=== PATIENT | male | born 1980 | race Caucasian/White ===

== ENCOUNTER 2020-01-10 01:33 | Inpatient (IN) | payer OTHER ==
[~2020-01-10] VITALS: Ht 170.2 cm; Wt 112.0 kg
[2020-01-10 02:55] LABS: BASOPHILS % 0.3 % (0.0-2.0); EOSINOPHILS % 0.8 % (0.0-5.0); HEMATOCRIT. 36.1 % (42.0-52.0); HEMOGLOBIN. 12.2 g/dL (14.0-18.0); MEAN CORPUSCULAR HEMOGLOBIN 27.7 pg (28.0-32.0); MEAN CORPUSCULAR VOLUME 81.8 fL (80.0-94.0); MEAN PLATELET VOLUME 8.1 fl (7.4-10.4); MONOCYTES % 12.9 % (2.0-8.0); PLATELET 375 x1000/uL (130-400); RED BLOOD CELL COUNT 4.42 mill/uL (4.7-6.1); RED CELL DISTRIBUTION WIDTH 13.5 % (11.6-14.6)
[2020-01-10 03:02] LABS: CHLORIDE 101 mEq/L (98-107)
[2020-01-10 03:06] LABS: CLARITY URINE CLEAR (CLEAR); COLOR URINE YELLOW (YELLOW); KETONES URINE NEGATIVE (NEGATIVE); LEUKOCYTE ESTERASE URINE NEGATIVE (NEGATIVE); NITRITE URINE NEGATIVE (NEGATIVE); OCCULT BLOOD URINE 1+ (NEGATIVE); PH URINE 5.5 (4.5-8.0); PROTEIN URINE 1+ (NEGATIVE); SPECIFIC GRAVITY URINE 1.024 (1.005-1.030); UROBILINOGEN URINE 0.2 E.U./dL (0.2-1.0)
[2020-01-10] MEDS ORDERED: SODIUM CHLORIDE 0.9% 1000ML BAG (SEPSIS BOLUS) IV ONE (03:15)
[2020-01-10] MEDS ORDERED: KETOROLAC 15MG/ML VIAL IV ONE (03:15)
[2020-01-10] MEDS ORDERED: MORPHINE SULFATE 4 MG/ML CPJ (NOT FOR IM USE) IV ONE (03:15)
[2020-01-10] MEDS ORDERED: PIPERACILLIN/TAZ 3.375G PREMIX 50 ML IV ONE (03:15)
[2020-01-10] MEDS ORDERED: VANCOMYCIN 1 G PREMIX 200 ML IV ONE (03:15)
[2020-01-10] MEDS ORDERED: PIPERACILLIN/TAZ 3.375G PREMIX 50 ML IV SCH ×2 (05:00→07:00)
[2020-01-10] MEDS ORDERED: GUAIFENESIN 200MG/10ML SUGAR FREE UDC PO PRN (07:00)
[2020-01-10] MEDS ORDERED: ONDANSETRON HCL 4MG/2ML INJ IV PRN (07:00)
[2020-01-10] MEDS ORDERED: MAGNESIUM/ALUMINUM HYDROXIDE/SIMETHICONE 30ML UDC PO PRN (07:00)
[2020-01-10] MEDS ORDERED: ENOXAPARIN 40MG/0.4ML SYR SUBCUT SCH (07:00)
[2020-01-10] MEDS ORDERED: IPRATROPIUM/ALBUTEROL 0.5-3(2.5)MG/3ML NEB NEB PRN (07:00)
[2020-01-10] MEDS ORDERED: NITROGLYCERIN 0.4MG TABLET SL SL PRN (07:00)
[2020-01-10] MEDS ORDERED: DOCUSATE SODIUM 100MG CAPSULE PO PRN (07:00)
[2020-01-10] MEDS ORDERED: TRAMADOL 50MG TABLET PO PRN (07:00)
[2020-01-10] MEDS ORDERED: DEXTROSE 50% WATER 50ML SYRINGE IV PRN (07:00)
[2020-01-10 09:00] VITALS: BP 127/83
[2020-01-10 09:30] VITALS: BP 127/83
[2020-01-10] MEDS: INSULIN LISPRO 100 UNITS/ML SUBCUT SCH ×4 (09:30→21:00)
[2020-01-10] MEDS: BLOOD SUGAR DIAGNOSTIC STRIP TEST SCH ×4 (09:30→21:00)
[2020-01-10] MEDS: GUAIFENESIN/DM 600MG/30MG ER TAB 12HR PO SCH ×2 (10:10→23:29)
[2020-01-10] MEDS: FAMOTIDINE 20MG TABLET PO SCH ×2 (10:10→23:29)
[2020-01-10] MEDS: ZINC SULFATE 220 MG ( 50 ) CAPSULE PO SCH (10:10)
[2020-01-10] MEDS: ASCORBIC ACID 500 MG TABLET PO SCH ×2 (10:10→23:29)
[2020-01-10] MEDS: ENOXAPARIN 30MG/0.3ML SYR SUBCUT SCH ×2 (10:11→21:00)
[2020-01-10] MEDS: SODIUM CHLORIDE 0.9% 1,000 ML IV SCH (10:11)
[2020-01-10 12:00] VITALS: BP 145/97
[2020-01-10] MEDS ORDERED: VANCOMYCIN 2,000 MG in DEXT 5% WATER 500 ML IV SCH (12:00)
[2020-01-10] MEDS: PIPERACILLIN/TAZOBACTAM 3.375 G in DEXT 5% WATER 100 ML IV SCH ×2 (12:06→17:18)
[2020-01-10] MEDS ORDERED: BENA40TA9 PO (12:34)
[2020-01-10] MEDS ORDERED: ASPI-1497 PO (12:34)
[2020-01-10] MEDS ORDERED: METF-415 PO (12:34)
[2020-01-10] MEDS: ACETAMINOPHEN 325MG TABLET PO PRN (12:49)
[2020-01-10 13:24] LABS: INR 1.2; PARTIAL THROMBOPLASTIN TIME 35.2 sec (23.4-31.0); PROTHROMBIN TIME 12.7 sec (9.6-11.0)
[2020-01-10 13:29] LABS: *BARBITURATES SCREEN URINE NEGATIVE (NEGATIVE)
[2020-01-10 13:30] LABS: *AMPHETAMINES SCREEN URINE NEGATIVE (NEGATIVE); *BENZODIAZEPINES SCREEN URINE NEGATIVE (NEGATIVE); *COCAINE SCREEN URINE NEGATIVE (NEGATIVE); CANNABINOID URINE SCREEN NEGATIVE (NEGATIVE); METHADONE URINE SCREEN NEGATIVE (NEGATIVE); OPIATES URINE SCREEN PRESUMTIVE POSITIVE (NEGATIVE); PHENCYCLIDINE URINE SCREEN NEGATIVE (NEGATIVE)
[2020-01-10 15:49] LABS: CREATINE KINASE 42 IU/L (39-308)
[2020-01-10 15:50] LABS: CREATINE KINASE MB FRACTION < 1.0 ng/mL (0.5-3.6)
[2020-01-10 16:00] VITALS: BP 129/82
[2020-01-10] MEDS: KETOROLAC 15MG/ML VIAL IV PRN (18:35)
[2020-01-10 20:00] VITALS: BP 139/97
[2020-01-10] MEDS ORDERED: ZOLPIDEM TARTRATE 5MG TABLET PO PRN (21:00)
[2020-01-10] MEDS: VANCOMYCIN 1250MG in DEXTROSE 5% WATER 250ML IV SCH (23:29)
[2020-01-11] VITALS (7 sets, daily range): BP systolic 136–156; BP diastolic 85–97
[2020-01-11] MEDS: PIPERACILLIN/TAZOBACTAM 3.375 G in DEXT 5% WATER 100 ML IV SCH ×4 (00:35→17:24)
[2020-01-11] MEDS: ACETAMINOPHEN 325MG TABLET PO PRN ×3 (00:35→20:25)
[2020-01-11 00:52] LABS: CREATINE KINASE 39 IU/L (39-308)
[2020-01-11 00:53] LABS: CREATINE KINASE MB FRACTION < 1.0 ng/mL (0.5-3.6)
[2020-01-11] MEDS: CLONIDINE 0.1MG TABLET PO PRN ×2 (05:00→12:02)
[2020-01-11] MEDS: BLOOD SUGAR DIAGNOSTIC STRIP TEST SCH ×4 (06:09→20:36)
[2020-01-11] MEDS: KETOROLAC 15MG/ML VIAL IV PRN (06:39)
[2020-01-11] MEDS: VANCOMYCIN 1250MG in DEXTROSE 5% WATER 250ML IV SCH ×3 (06:39→22:33)
[2020-01-11] MEDS: SODIUM CHLORIDE 0.9% 1,000 ML IV SCH (06:40)
[2020-01-11] MEDS: INSULIN LISPRO 100 UNITS/ML SUBCUT SCH ×4 (06:43→20:45)
[2020-01-11 07:42] LABS: INR 1.2; PARTIAL THROMBOPLASTIN TIME 33.9 sec (23.4-31.0)
[2020-01-11] MEDS ORDERED: SODIUM BICARBONATE 4% (2.4MEQ) 5ML VIAL IV ONE (08:42)
[2020-01-11] MEDS: ENOXAPARIN 30MG/0.3ML SYR SUBCUT SCH ×2 (09:00→20:45)
[2020-01-11] MEDS: ZINC SULFATE 220 MG ( 50 ) CAPSULE PO SCH (09:54)
[2020-01-11] MEDS: FAMOTIDINE 20MG TABLET PO SCH ×2 (09:54→20:27)
[2020-01-11] MEDS: GUAIFENESIN/DM 600MG/30MG ER TAB 12HR PO SCH ×2 (09:54→20:25)
[2020-01-11] MEDS: ASCORBIC ACID 500 MG TABLET PO SCH ×2 (09:54→20:25)
[2020-01-12] VITALS (52 sets, daily range): BP systolic 128–165; BP diastolic 59–103
[2020-01-12] MEDS: PIPERACILLIN/TAZOBACTAM 3.375 G in DEXT 5% WATER 100 ML IV SCH ×5 (00:13→23:06)
[2020-01-12] MEDS: INSULIN LISPRO 100 UNITS/ML SUBCUT SCH ×3 (06:30→21:01)
[2020-01-12] MEDS: BLOOD SUGAR DIAGNOSTIC STRIP TEST SCH ×3 (06:30→21:02)
[2020-01-12] MEDS: VANCOMYCIN 1250MG in DEXTROSE 5% WATER 250ML IV SCH ×3 (07:19→21:11)
[2020-01-12] MEDS: ZINC SULFATE 220 MG ( 50 ) CAPSULE PO SCH (08:03)
[2020-01-12] MEDS: FAMOTIDINE 20MG TABLET PO SCH ×2 (08:03→20:47)
[2020-01-12] MEDS: GUAIFENESIN/DM 600MG/30MG ER TAB 12HR PO SCH ×2 (08:03→20:47)
[2020-01-12] MEDS: ENOXAPARIN 30MG/0.3ML SYR SUBCUT SCH ×2 (08:04→20:48)
[2020-01-12] MEDS: ASCORBIC ACID 500 MG TABLET PO SCH ×2 (08:04→21:11)
[2020-01-12] MEDS ORDERED: BUPIVACAINE/EPINEPH/PF 0.25%/0.0005 10ML ONE (08:05)
[2020-01-12] MEDS ORDERED: TETRACAINE/BENZOCAINE/BUTAMBEN 20 GM SPRAY MM ONE (08:05)
[2020-01-12] MEDS ORDERED: BACITRACIN 50,000 UNITS/VIAL ONE (08:05)
[2020-01-12] MEDS ORDERED: BACITRACIN 15GM TUBE TOP ONE (08:06)
[2020-01-12] MEDS ORDERED: SKIN ADHESIVE 0.7 GM EA TOP ONE (08:06)
[2020-01-12] MEDS ORDERED: MIDAZOLAM HCL 2 MG/2 ML VIAL ONE (09:12)
[2020-01-12] MEDS ORDERED: PROPOFOL 200MG/20ML VIAL IV ONE (09:12)
[2020-01-12] MEDS ORDERED: ROCURONIUM BROMIDE 10MG/ML VIAL 5ML IV ONE (09:12)
[2020-01-12] MEDS ORDERED: NEOSTIGMINE METHYLSULFATE 1MG/ML 10 ML VIAL ONE (09:12)
[2020-01-12] MEDS ORDERED: FENTANYL CITRATE/PF 50MCG/ML 2ML VIAL ONE (09:12)
[2020-01-12] MEDS ORDERED: GLYCOPYRROLATE 0.2 MG/ML 2ML VIAL ONE ×2 (09:13→11:20)
[2020-01-12] MEDS ORDERED: DEXAMETHASONE 4MG/ML 1ML VIAL ONE (09:14)
[2020-01-12] MEDS ORDERED: ONDANSETRON HCL 4MG/2ML INJ ONE (09:14)
[2020-01-12] MEDS ORDERED: TALC 3 GM VIAL IX SCH (10:00)
[2020-01-12] MEDS ORDERED: HYDROMORPHONE HCL/PF 2MG/ML (OR) ONE (11:17)
[2020-01-12] MEDS ORDERED: LABETALOL 5MG/ML SYR 20 MG/4 ML SYRINGE IV PRN (11:45)
[2020-01-12] MEDS ORDERED: HYDROMORPHONE HCL/PF 2MG/ML CPJ IV PRN (11:45)
[2020-01-12] MEDS ORDERED: MEPERIDINE HCL/PF 25MG/ML CPJ IV PRN (11:45)
[2020-01-12] MEDS ORDERED: ONDANSETRON HCL 4MG/2ML INJ IV PRN (11:45)
[2020-01-12 12:34] LABS: HEMATOCRIT. 35.3 % (42.0-52.0); HEMOGLOBIN. 11.9 g/dL (14.0-18.0); MEAN CORPUSCULAR VOLUME 83.2 fL (80.0-94.0); MEAN PLATELET VOLUME 7.6 fl (7.4-10.4); PLATELET 354 x1000/uL (130-400); RED BLOOD CELL COUNT 4.25 mill/uL (4.7-6.1); RED CELL DISTRIBUTION WIDTH 13.4 % (11.6-14.6)
[2020-01-12] MEDS: HYDROMORPHONE HCL/PF 2MG/ML CPJ IV PRN ×3 (14:11→19:59)
[2020-01-12 14:27] LABS: PLATELET ESTIMATE NORMAL
[2020-01-12] MEDS: LACTATED RINGERS 1,000 ML IV SCH (15:31)
[2020-01-12] MEDS: SODIUM CHLORIDE 0.9% 1,000 ML IV SCH (19:39)
[2020-01-13] VITALS (71 sets, daily range): BP systolic 125–158; BP diastolic 61–103
[2020-01-13] MEDS: PIPERACILLIN/TAZOBACTAM 3.375 G in DEXT 5% WATER 100 ML IV SCH ×4 (05:03→23:08)
[2020-01-13] MEDS: VANCOMYCIN 1250MG in DEXTROSE 5% WATER 250ML IV SCH (05:08)
[2020-01-13] MEDS: HYDROMORPHONE HCL/PF 2MG/ML CPJ IV PRN ×3 (06:16→23:23)
[2020-01-13 06:51] LABS: BASOPHILS % 0.3 % (0.0-2.0); EOSINOPHILS % 0.6 % (0.0-5.0); HEMATOCRIT. 35.1 % (42.0-52.0); HEMOGLOBIN. 11.7 g/dL (14.0-18.0); LYMPHOCYTES % 15.1 % (20.0-50.0); MEAN CORPUSCULAR HEMOGLOBIN 27.6 pg (28.0-32.0); MEAN CORPUSCULAR VOLUME 83.1 fL (80.0-94.0); MEAN PLATELET VOLUME 7.7 fl (7.4-10.4); PLATELET 348 x1000/uL (130-400); RED BLOOD CELL COUNT 4.22 mill/uL (4.7-6.1); RED CELL DISTRIBUTION WIDTH 13.6 % (11.6-14.6)
[2020-01-13 07:11] LABS: CHLORIDE 108 mEq/L (98-107)
[2020-01-13] MEDS: INSULIN LISPRO 100 UNITS/ML SUBCUT SCH ×4 (08:20→20:58)
[2020-01-13] MEDS: ZINC SULFATE 220 MG ( 50 ) CAPSULE PO SCH (08:41)
[2020-01-13] MEDS: FAMOTIDINE 20MG TABLET PO SCH ×2 (08:41→20:43)
[2020-01-13] MEDS: GUAIFENESIN/DM 600MG/30MG ER TAB 12HR PO SCH ×2 (08:41→20:43)
[2020-01-13] MEDS: ASCORBIC ACID 500 MG TABLET PO SCH ×2 (08:41→20:43)
[2020-01-13] MEDS: BLOOD SUGAR DIAGNOSTIC STRIP TEST SCH ×4 (08:42→20:58)
[2020-01-13] MEDS: SODIUM CHLORIDE 0.9% 1,000 ML IV SCH (08:42)
[2020-01-13] MEDS: ENOXAPARIN 30MG/0.3ML SYR SUBCUT SCH ×2 (09:00→20:43)
[2020-01-13] MEDS: LOSARTAN POTASSIUM 100 MG TABLET PO SCH (13:21)
[2020-01-13] MEDS: VANCOMYCIN 1500MG in DEXTROSE 5% WATER 250ML IV SCH (22:26)
[2020-01-14] VITALS (44 sets, daily range): BP systolic 120–164; BP diastolic 79–104
[2020-01-14] MEDS: SODIUM CHLORIDE 0.9% 1,000 ML IV SCH (02:23)
[2020-01-14] MEDS: PIPERACILLIN/TAZOBACTAM 3.375 G in DEXT 5% WATER 100 ML IV SCH ×3 (05:22→17:53)
[2020-01-14 05:54] LABS: BASOPHILS % 0.4 % (0.0-2.0); EOSINOPHILS % 2.9 % (0.0-5.0); HEMATOCRIT. 35.7 % (42.0-52.0); HEMOGLOBIN. 12.1 g/dL (14.0-18.0); LYMPHOCYTES % 15.5 % (20.0-50.0); MEAN CORPUSCULAR VOLUME 82.9 fL (80.0-94.0); MEAN PLATELET VOLUME 7.5 fl (7.4-10.4); MONOCYTES % 10.5 % (2.0-8.0); NEUTROPHILS % 70.7 % (40.0-76.0); PLATELET 352 x1000/uL (130-400); RED CELL DISTRIBUTION WIDTH 13.2 % (11.6-14.6)
[2020-01-14] MEDS: HYDROMORPHONE HCL/PF 2MG/ML CPJ IV PRN ×4 (06:57→23:16)
[2020-01-14] MEDS: BLOOD SUGAR DIAGNOSTIC STRIP TEST SCH ×4 (07:50→21:00)
[2020-01-14] MEDS: INSULIN LISPRO 100 UNITS/ML SUBCUT SCH ×4 (08:20→21:00)
[2020-01-14] MEDS: ASCORBIC ACID 500 MG TABLET PO SCH ×2 (08:21→21:20)
[2020-01-14] MEDS: GUAIFENESIN/DM 600MG/30MG ER TAB 12HR PO SCH ×2 (08:21→21:20)
[2020-01-14] MEDS: ZINC SULFATE 220 MG ( 50 ) CAPSULE PO SCH (08:21)
[2020-01-14] MEDS: LOSARTAN POTASSIUM 100 MG TABLET PO SCH (08:22)
[2020-01-14] MEDS: VANCOMYCIN 1500MG in DEXTROSE 5% WATER 250ML IV SCH ×2 (08:22→21:20)
[2020-01-14] MEDS: FAMOTIDINE 20MG TABLET PO SCH ×2 (08:22→23:15)
[2020-01-14] MEDS: ENOXAPARIN 30MG/0.3ML SYR SUBCUT SCH ×2 (08:22→23:15)
[2020-01-14] MEDS: LACTATED RINGERS 1,000 ML IV SCH (14:13)
[2020-01-15] VITALS (43 sets, daily range): BP systolic 127–172; BP diastolic 69–114
[2020-01-15] MEDS: PIPERACILLIN/TAZOBACTAM 3.375 G in DEXT 5% WATER 100 ML IV SCH ×4 (00:21→18:02)
[2020-01-15] MEDS: HYDROMORPHONE HCL/PF 2MG/ML CPJ IV PRN ×4 (04:45→22:11)
[2020-01-15 06:02] LABS: BASOPHILS % 0.5 % (0.0-2.0); EOSINOPHILS % 3.4 % (0.0-5.0); HEMATOCRIT. 36.1 % (42.0-52.0); HEMOGLOBIN. 11.9 g/dL (14.0-18.0); LYMPHOCYTES % 11.4 % (20.0-50.0); MEAN CORPUSCULAR HEMOGLOBIN 27.3 pg (28.0-32.0); MEAN CORPUSCULAR VOLUME 82.7 fL (80.0-94.0); MEAN PLATELET VOLUME 7.5 fl (7.4-10.4); NEUTROPHILS % 75.7 % (40.0-76.0); PLATELET 372 x1000/uL (130-400); RED BLOOD CELL COUNT 4.36 mill/uL (4.7-6.1); RED CELL DISTRIBUTION WIDTH 13.3 % (11.6-14.6)
[2020-01-15] MEDS: BLOOD SUGAR DIAGNOSTIC STRIP TEST SCH ×4 (08:16→22:09)
[2020-01-15] MEDS: VANCOMYCIN 1500MG in DEXTROSE 5% WATER 250ML IV SCH (09:16)
[2020-01-15] MEDS: ASCORBIC ACID 500 MG TABLET PO SCH ×2 (09:17→22:09)
[2020-01-15] MEDS: FAMOTIDINE 20MG TABLET PO SCH ×2 (09:17→22:09)
[2020-01-15] MEDS: ZINC SULFATE 220 MG ( 50 ) CAPSULE PO SCH (09:17)
[2020-01-15] MEDS: LOSARTAN POTASSIUM 100 MG TABLET PO SCH (09:17)
[2020-01-15] MEDS: GUAIFENESIN/DM 600MG/30MG ER TAB 12HR PO SCH ×2 (09:17→22:09)
[2020-01-15] MEDS: ENOXAPARIN 30MG/0.3ML SYR SUBCUT SCH ×2 (09:17→22:10)
[2020-01-15] MEDS: INSULIN LISPRO 100 UNITS/ML SUBCUT SCH ×4 (09:19→22:09)
[2020-01-16] VITALS (12 sets, daily range): BP systolic 137–163; BP diastolic 70–99
[2020-01-16] MEDS: PIPERACILLIN/TAZOBACTAM 3.375 G in DEXT 5% WATER 100 ML IV SCH ×3 (00:36→12:41)
[2020-01-16] MEDS: ACETAMINOPHEN 325MG TABLET PO PRN (04:03)
[2020-01-16] MEDS: BLOOD SUGAR DIAGNOSTIC STRIP TEST SCH ×4 (05:50→21:09)
[2020-01-16] MEDS: VANCOMYCIN 1,750 MG in DEXT 5% WATER 250 ML IV SCH ×2 (06:33→23:06)
[2020-01-16] MEDS: HYDROMORPHONE HCL/PF 2MG/ML CPJ IV PRN ×2 (06:51→18:42)
[2020-01-16] MEDS: INSULIN LISPRO 100 UNITS/ML SUBCUT SCH ×4 (07:20→21:00)
[2020-01-16] MEDS: LOSARTAN POTASSIUM 100 MG TABLET PO SCH (08:51)
[2020-01-16] MEDS: GUAIFENESIN/DM 600MG/30MG ER TAB 12HR PO SCH ×2 (08:51→21:01)
[2020-01-16] MEDS: ASCORBIC ACID 500 MG TABLET PO SCH ×2 (08:51→21:01)
[2020-01-16] MEDS: FAMOTIDINE 20MG TABLET PO SCH ×2 (08:51→21:09)
[2020-01-16] MEDS: ZINC SULFATE 220 MG ( 50 ) CAPSULE PO SCH (08:51)
[2020-01-16] MEDS: ENOXAPARIN 30MG/0.3ML SYR SUBCUT SCH ×2 (09:00→20:16)
[2020-01-16] MEDS: CEFTRIAXONE 1 G PREMIX 50 ML IV SCH (16:43)
[2020-01-16] MEDS: METRONIDAZOLE 500MG TABLET PO SCH (21:01)
[2020-01-17] VITALS (14 sets, daily range): BP systolic 123–156; BP diastolic 83–109
[2020-01-17] MEDS: BLOOD SUGAR DIAGNOSTIC STRIP TEST SCH ×4 (06:28→21:00)
[2020-01-17] MEDS: INSULIN LISPRO 100 UNITS/ML SUBCUT SCH ×4 (07:20→21:06)
[2020-01-17] MEDS ORDERED: POTASSIUM CHLORIDE 20MEQ TABLET SR PO NR (08:30)
[2020-01-17] MEDS: FAMOTIDINE 20MG TABLET PO SCH ×2 (08:32→21:05)
[2020-01-17] MEDS: ASCORBIC ACID 500 MG TABLET PO SCH ×2 (08:32→21:05)
[2020-01-17] MEDS: ZINC SULFATE 220 MG ( 50 ) CAPSULE PO SCH (08:32)
[2020-01-17] MEDS: LOSARTAN POTASSIUM 100 MG TABLET PO SCH (08:32)
[2020-01-17] MEDS: GUAIFENESIN/DM 600MG/30MG ER TAB 12HR PO SCH ×2 (08:33→21:05)
[2020-01-17] MEDS: METRONIDAZOLE 500MG TABLET PO SCH ×2 (08:33→21:05)
[2020-01-17] MEDS: ENOXAPARIN 30MG/0.3ML SYR SUBCUT SCH (08:44)
[2020-01-17] MEDS: HYDROMORPHONE HCL/PF 2MG/ML CPJ IV PRN (10:10)
[2020-01-17 10:47] LABS: BASOPHILS % 0.8 % (0.0-2.0); EOSINOPHILS % 3.7 % (0.0-5.0); HEMATOCRIT. 36.7 % (42.0-52.0); HEMOGLOBIN. 12.5 g/dL (14.0-18.0); LYMPHOCYTES % 13.1 % (20.0-50.0); MEAN CORPUSCULAR HEMOGLOBIN 27.6 pg (28.0-32.0); MEAN CORPUSCULAR VOLUME 81.5 fL (80.0-94.0); MEAN PLATELET VOLUME 7.3 fl (7.4-10.4); MONOCYTES % 7.9 % (2.0-8.0); NEUTROPHILS % 74.5 % (40.0-76.0); PLATELET 375 x1000/uL (130-400); RED BLOOD CELL COUNT 4.51 mill/uL (4.7-6.1); RED CELL DISTRIBUTION WIDTH 13.6 % (11.6-14.6)
[2020-01-17] MEDS: CEFTRIAXONE 1 G PREMIX 50 ML IV SCH (16:45)
[2020-01-17] MEDS: VANCOMYCIN 1,750 MG in DEXT 5% WATER 250 ML IV SCH (18:56)
[2020-01-18] VITALS (7 sets, daily range): BP systolic 124–142; BP diastolic 78–99
[2020-01-18] MEDS: BLOOD SUGAR DIAGNOSTIC STRIP TEST SCH ×2 (06:23→12:05)
[2020-01-18] MEDS: INSULIN LISPRO 100 UNITS/ML SUBCUT SCH ×2 (06:23→12:41)
[2020-01-18] MEDS: METRONIDAZOLE 500MG TABLET PO SCH (09:01)
[2020-01-18] MEDS: ASCORBIC ACID 500 MG TABLET PO SCH (09:01)
[2020-01-18] MEDS: ZINC SULFATE 220 MG ( 50 ) CAPSULE PO SCH (09:01)
[2020-01-18] MEDS: GUAIFENESIN/DM 600MG/30MG ER TAB 12HR PO SCH (09:01)
[2020-01-18] MEDS: LOSARTAN POTASSIUM 100 MG TABLET PO SCH (09:01)
[2020-01-18] MEDS: FAMOTIDINE 20MG TABLET PO SCH (09:04)
== END 2020-01-18 14:21 | disposition home or self-care (01) | DRG 853 ==
LOC: ER 02:20 → 5WST 05:07 → ENRESERV 08:16 → 5WST 01-12 11:51 → CVICU 01-12 12:39 → 3WST 01-15 20:48
PROVIDERS: ADMIT Internal Medicine; ATTEND Internal Medicine
PROC: 0W9B3ZZ Drainage of Left Pleural Cavity, Percutaneous Approach (ICD-10-PCS; 2020-01-11)
PROC: 0BNJ4ZZ Release Left Lower Lung Lobe, Percutaneous Endoscopic Approach (ICD-10-PCS; principal; 2020-01-12)
PROC: 3E0T3BZ Introduction of Anesthetic Agent into Peripheral Nerves and Plexi, Percutaneous Approach (ICD-10-PCS; 2020-01-12)
PROC: 0BJ08ZZ Inspection of Tracheobronchial Tree, Via Natural or Artificial Opening Endoscopic (ICD-10-PCS; 2020-01-12)
PROC: 0BNG4ZZ Release Left Upper Lung Lobe, Percutaneous Endoscopic Approach (ICD-10-PCS; 2020-01-12)
PROC: 0JB60ZZ Excision of Chest Subcutaneous Tissue and Fascia, Open Approach (ICD-10-PCS; 2020-01-17)
DX: A41.9 Sepsis, unspecified organism (principal); J86.9 Pyothorax without fistula; E43 Unspecified severe protein-calorie malnutrition; J18.9 Pneumonia, unspecified organism; J96.00 Acute respiratory failure, unspecified whether with hypoxia or hypercapnia; E87.1 Hypo-osmolality and hyponatremia; J90 Pleural effusion, not elsewhere classified; J98.11 Atelectasis; I11.9 Hypertensive heart disease without heart failure; D63.8 Anemia in other chronic diseases classified elsewhere; E11.65 Type 2 diabetes mellitus with hyperglycemia; E66.01 Morbid (severe) obesity due to excess calories; D64.9 Anemia, unspecified; E83.51 Hypocalcemia; Z79.4 Long term (current) use of insulin; Z87.01 Personal history of pneumonia (recurrent); Z68.38 Body mass index [BMI] 38.0-38.9, adult
CPT/HCPCS: 32555; 36415; 71045; 71270; 80048; 80053; 80061; 80202; 80305; 81003; 82550; 82553; 82962; 83036; 83605; 83615; 83880; 83986; 84145; 84484; 85025; 86850; 86900; 86920; 87070; 87075; 87106; 88108; 88307; 88312; 93005; 93306; 93970; 97162; 99291; J0171; J0696; J1100; J1170; J1650; J1815; J1885; J2250; J2270; J2405; J2543; J2704; J2710; J3010; J3370; J3490; J7030; J7060; J7120